=== PATIENT | female | born 1975 | race Two or more races ===

== ENCOUNTER → 2019-01-03 | Outpatient (CLI) | payer BC | END | disposition home or self-care (01) | LOC: RADCTMAIN 12:43 | PROVIDERS: ATTEND Internal Medicine Infectious Disease | DX: Z53.9 Procedure and treatment not carried out, unspecified reason (principal) ==

== ENCOUNTER → 2024-03-26 | Outpatient (CLI) | payer BC | LOC: CPPFTMAIN 08:18 | PROVIDERS: ATTEND Internal Medicine Critical Care Medicine | DX: J45.30 Mild persistent asthma, uncomplicated (principal) | CPT/HCPCS: 94060; 94726; 94729 ==